=== PATIENT | male | born 1990 | race Caucasian/White ===

== ENCOUNTER 2017-12-15 17:02 | Inpatient (IN) | payer MEDICAID ==
--- NOTE | 2017-12-15 18:06 | ED Physician Chart ---
ED Chief Complaint/HPI - Patient Information Date Seen:: 12/15/17 Time Seen:: 18:01 Chief Complaint:: RLQ abdominal pain History of Present Illness:: 27 yo male had right inguinal and RLQ abdominal pain for 3 days. He then developed right flank pain for 1 day. He felt fever, nausea and urinary frequency. He denied diarrhea. Allergies:: Allergies Allergy/AdvReac Type Severity Reaction Status Date / Time No Known Allergies Allergy Verified 12/15/17 17:25 Vitals:: Vital Signs - 8 hr 12/15/17 17:25 Temp 98.2 F HR 67 RR 16 BP 145/83 O2 Sat % 98 ED Review of Systems - Review of Systems General/Constitutional: No fever Skin: No skin lesions Head: No headache Eyes: No loss of vision ENT: No earache Neck: No neck pain Cardio Vascular: No chest pain Pulmonary: No SOB GI: Nausea, No vomiting G/U: Frequency Neurological: No focal symptoms ED Past Medical History - Past Medical History Past Medical History: No significant medical hx Social History: Smoker, Alcohol, No Drug Use Surgical History: None Family Medical History - Family Member Mother Hx Family Cancer: No Hx Family Congestive Heart Failure: No Hx Family Hypertension: No Hx Family Stroke: No Hx Family Seizures: No Hx Family HIV: No Hx Family COPD: No Hx Family Tuberculosis: No ED Physical Exam - Physical Examination General/Constitutional: Awake Head: Atraumatic Eyes: PERRL, EOMI Skin: No skin lesions ENMT: Nasal exam nl Neck: No nuchal rigidity Respiratory: Clear to Auscultation, No Wheeze/Rhonchi/Rales Cardio Vascular: RRR, No murmur, gallop, rubs, NL S1 S2 Other GI comments:: RLQ tenderness Other comments:: Right CVA percussion tenderness Extremities: normal strength in all extremities Neuro/Psych: No focal deficits ED Labs/Radiology/EKG Results - Radiology Results Results: CT abdomen/pelvis: 5mm right distal ureteral stone with mild hydronephrosis, 8mm left kidney stone without hydronephrosis ED Assessment - Assessment General Assessment: Right ureteral stone Right hydronephrosis Left renal stone Assessment/Comments:: Toraldo 30mg IV NS 1L IV bolus Admit to med surg ED Septic Shock - . Is Septic Shock (SBP<90, OR Lactate>4 mmol\L) present?: No - <6hrs of presentation: Vital Signs: Vital Signs - 8 hr 12/15/17 17:25 Temp 98.2 F HR 67 RR 16 BP 145/83 O2 Sat % 98 ED Reassessment (Disposition) - Reassessment Reassessment Condition:: Improved - Patient Disposition Discharge/Transfer:: Acute Care w/in this hosp Admitting Medical Physician:: Ree Turner
[2017-12-15 19:07] LABS: % BASOPHILS 0.2 % (0.0-2.0); % EOSINOPHILS 1.2 % (0.0-5.0); % LYMPHOCYTES 12.9 % (20.0-50.0); % MONOCYTES 6.3 % (2.0-10.0); % NEUTROPHILS 79.4 % (40.0-80.0); EOSINOPHILE ABSOLUTE 0.1 Th/cmm (0.1-0.4); HEMATOCRIT 45.5 % (41.0-60); LYMPHOCYTE ABSOLUTE 1.4 Th/cmm (1.5-3.0); MEAN CELL VOLUME 80.1 fl (80-99); MEAN CORPUSCULAR HEMOGLOBIN 26.3 pg (26.0-30.0); MEAN CORPUSCULAR HGB CONC 32.9 pg (28.0-36.0); MEAN PLATELET VOLUME 8.1 fl; MONOCYTE ABSOLUTE 0.7 Th/cmm (0.3-1.0); NEUTROPHILE ABSOLUTE 8.6 Th/cmm (1.8-8.0); PLATELET COUNT 241 Th/cmm (150-400); RED BLOOD COUNT 5.68 Mil/cmm (4.30-5.70); RED CELL DISTRIBUTION WIDTH 12.6 % (11.5-20.0); WHITE BLOOD COUNT 10.8 Th/cmm (4.8-10.8)
[2017-12-15 19:08] LABS: URINE MICROSCOPIC INDICATED? YES; URINE SOURCE RANDOM
[2017-12-15 19:13] LABS: URINE BILIRUBIN NEGATIVE (NEGATIVE); URINE BLOOD MODERATE (NEGATIVE); URINE GLUCOSE (UA) NEGATIVE (NEGATIVE); URINE KETONE NEGATIVE (NEGATIVE); URINE LEUKOCYTE ESTERASE NEGATIVE (NEGATIVE); URINE NITRATE NEGATIVE (NEGATIVE); URINE PROTEIN NEGATIVE (NEGATIVE); URINE UROBILINOGEN 0.2 E.U./dL (0.2 - 1.0)
[2017-12-15 19:23] LABS: ALB/GLOB RATIO 1.8 (1.0-1.8); ALBUMIN 4.9 gm/dL (4.2-5.5); ALKALINE PHOSPHATASE 59 U/L (34-104); BILIRUBIN,TOTAL 0.4 mg/dL (0.3-1.0); BUN - UREA NITROGEN 13 mg/dL (7-25); CARBON DIOXIDE 26.7 mEq/L (21.0-31.0); CHLORIDE 102 mEq/L (98-107); CREATININE - SERUM 0.9 mg/dL (0.7-1.3); GFR AFRICAN-AMERICAN > 60.0 ml/min (>90); GFR NON AFRICAN-AMERICAN > 60.0 ml/min; GLUCOSE 128 mg/dL (70-105); POTASSIUM SERUM 3.7 mEq/L (3.5-5.1); SGOT 19 U/L (13-39); SGPT/ALT 26 U/L (7-52); SODIUM SERUM 136 mEq/L (136-145); TOTAL PROTEIN,SERUM 7.7 gm/dL (6.0-8.3)
[2017-12-15 19:39] LABS: URINE BACTERIA NONE SEEN /hpf (NONE SEEN); URINE CLARITY CLEAR (CLEAR); URINE COLOR YELLOW; URINE EPITHELIAL CELLS NONE SEEN /lpf (FEW); URINE WBC NONE SEEN /hpf (0-5)
[2017-12-15] MEDS ORDERED: Sodium Chloride 0.9% 1,000 ML IV ONE (19:48)
[2017-12-15] MEDS ORDERED: Sodium Chloride 0.9% 1,000 ML IV SCH (21:45)
[2017-12-15] MEDS: cefTRIAXone 1 GM in Sodium Chloride 0.9% 50 ML IV SCH (23:44)
[2017-12-16 06:06] LABS: % BASOPHILS 0.5 % (0.0-2.0); % EOSINOPHILS 4.5 % (0.0-5.0); % LYMPHOCYTES 26.4 % (20.0-50.0); % NEUTROPHILS 57.6 % (40.0-80.0); EOSINOPHILE ABSOLUTE 0.3 Th/cmm (0.1-0.4); HEMOGLOBIN 14.1 gm/dL (12-16); LYMPHOCYTE ABSOLUTE 1.6 Th/cmm (1.5-3.0); MEAN CELL VOLUME 81.8 fl (80-99); MEAN CORPUSCULAR HEMOGLOBIN 26.8 pg (26.0-30.0); MEAN CORPUSCULAR HGB CONC 32.7 pg (28.0-36.0); MEAN PLATELET VOLUME 8.2 fl; MONOCYTE ABSOLUTE 0.7 Th/cmm (0.3-1.0); NEUTROPHILE ABSOLUTE 3.6 Th/cmm (1.8-8.0); PLATELET COUNT 220 Th/cmm (150-400); RED BLOOD COUNT 5.26 Mil/cmm (4.30-5.70); RED CELL DISTRIBUTION WIDTH 12.8 % (11.5-20.0)
[2017-12-16 06:15] LABS: INR 1.01 (0.5-1.4); PROTHROMBIN TIME (TEST) 10.5 SECONDS (9.5-11.5)
[2017-12-16 06:30] LABS: WHITE BLOOD COUNT 6.2 Th/cmm (4.8-10.8)
[2017-12-16 06:56] LABS: ALB/GLOB RATIO 1.7 (1.0-1.8); ALBUMIN 4.2 gm/dL (4.2-5.5); ALKALINE PHOSPHATASE 51 U/L (34-104); ANION GAP 8.5 (7.0-16.0); BILIRUBIN,TOTAL 0.6 mg/dL (0.3-1.0); BUN - UREA NITROGEN 12 mg/dL (7-25); CALCIUM SERUM 8.8 mg/dL (8.6-10.3); CARBON DIOXIDE 28.6 mEq/L (21.0-31.0); CHLORIDE 106 mEq/L (98-107); CREATININE - SERUM 0.8 mg/dL (0.7-1.3); GFR AFRICAN-AMERICAN > 60.0 ml/min (>90); GFR NON AFRICAN-AMERICAN > 60.0 ml/min; GLUCOSE 110 mg/dL (70-105); MAGNESIUM 2.2 mg/dL (1.9-2.7); POTASSIUM SERUM 4.1 mEq/L (3.5-5.1); SGOT 15 U/L (13-39); SGPT/ALT 21 U/L (7-52); SODIUM SERUM 139 mEq/L (136-145); TOTAL PROTEIN,SERUM 6.7 gm/dL (6.0-8.3)
--- NOTE | 2017-12-16 09:47 | Diagnostic Imaging Report ---
Exam: KUB of the abdomen. HISTORY: Ureteral stone. Findings: Portable summation of the abdomen at 2204 hours reviewed. The study demonstrates nonspecific bowel gas pattern. Bony structures intact. No abnormal masses or calcifications are noted. IMPRESSION: Unremarkable examination of the abdomen.
--- NOTE | 2017-12-16 09:51 | Diagnostic Imaging Report ---
Exam: CT examination abdomen pelvis. HISTORY: Right lower quadrant pain Total DLP equals 333 CTDI equals 7.2. Findings: Multiple contiguous thin section of the abdomen pelvis obtained from lower thorax to pubic symphysis without the administration of contrast material no prior studies available comparison. The study demonstrates normal aeration of lung parenchyma the bases. The study demonstrates normal appearance of liver parenchyma and spleen. The pancreas is intact. The gallbladder is distended. No free fluid is noted There is evidence of for nonobstructing 8 mm left renal calculus Small, punctate, nonobstructing calculi noted in the right kidney Mild right-sided hydronephrosis noted with the prominence of the right the ureter with approximately 5 mm right distal ureteral calculus. The urinary bladder is intact. There is no evidence of diverticular process of diverticulitis. No free fluid is noted in the abdomen. The appendix is intact. IMPRESSION: 1. Nonobstructing left 8 mm renal calculus 2. Mild right-sided hydronephrosis. Right-sided distal ureter 5 mm partially obstructing calculus clinical correlation recommended. Punctate nonobstructing small calculi in the right renal pelvis
[2017-12-16] MEDS: cefTRIAXone 1 GM in Sodium Chloride 0.9% 50 ML IV SCH (20:45)
--- NOTE | 2017-12-16 23:50 | Consultation ---
DATE OF CONSULTATION: UROLOGY CONSULTATION HISTORY OF PRESENT ILLNESS: A 27-year-old seen for right flank and abdominal pain with nausea and some chills, no vomiting, dysuria, or hematuria of 3 days duration before admission. No past history of similar problems. No history of stone disease in himself or family. No history of urologic operation or hematuria and no urinary difficulties. HOME MEDICATIONS: None. ALLERGIES: None. PAST SURGICAL HISTORY: Negative. FAMILY HISTORY: Negative for stone disease. SOCIAL HISTORY: The patient is a cook. Denies tobacco, alcohol, or drug use. REVIEW OF SYSTEMS: No fever. Subjective chills present. No headache or seizures. Denied chest pain, coughing, or shortness of breath. Abdominal pain from the right flank to the right lower quadrant. No diarrhea. Some nausea, which has improved. No dysuria or hematuria. Denies skin or joint problems. PHYSICAL EXAMINATION: GENERAL: Awake, alert, oriented, in no distress. VITAL SIGNS: Temperature 98.8, heart rate 64, and blood pressure 112/67. He has not had a fever in the hospital so far. HEAD AND NECK: Normocephalic. Trachea central. Pupils equal and reactive. No jaundice. NECK: Thyroid and lymph nodes not palpable. Carotid bruit absent. CHEST: Symmetrical. LUNGS: Clear. No rales or rhonchi. Cardiovascular: Heart sounds normal in sinus rhythm, no murmur. ABDOMEN: Soft, much guarding, no rebound or rigidity. No tenderness in the flank on percussion, nor in the upper or lower right quadrants. No organomegaly or masses. EXTREMITIES: No edema or lymphadenopathy. NEUROLOGIC: Nonfocal. Moves all 4 limbs. LABORATORY DATA AND DIAGNOSTIC DATA: PT/INR is 1.0. White count is 6.2, down from 10.8 yesterday without any significant shift, hemoglobin 14.1, and platelets normal. BUN 12 and creatinine 0.8. Electrolytes are normal. Glucose 110. Liver functions are normal. Urine shows large amount of blood, 5-[address] scan of the abdomen and pelvis showed a 5 mm stone in the right distal ureter with a mild hydronephrosis and an 8 mm stone in the left kidney, incidental nonobstructing. There are also punctate stones in the right renal pelvis. IMPRESSION: Obstructing right ureteral stone and nonobstructing left kidney stone. Recommend aggressive diuresis, hydration, ambulation, and hopefully, the patient can pass the stone. If not, he will require a stent placement. We will continue to strain the urine and encourage oral hydration as well. At the same time, give him Lasix and follow his electrolytes. JOB# [id number]
[2017-12-17 06:00] LABS: % BASOPHILS 0.2 % (0.0-2.0); % EOSINOPHILS 5.5 % (0.0-5.0); % MONOCYTES 10.1 % (2.0-10.0); % NEUTROPHILS 54.2 % (40.0-80.0); EOSINOPHILE ABSOLUTE 0.3 Th/cmm (0.1-0.4); HEMATOCRIT 44.2 % (41.0-60); HEMOGLOBIN 14.5 gm/dL (12-16); LYMPHOCYTE ABSOLUTE 1.8 Th/cmm (1.5-3.0); MEAN CELL VOLUME 81.6 fl (80-99); MEAN CORPUSCULAR HEMOGLOBIN 26.8 pg (26.0-30.0); MEAN CORPUSCULAR HGB CONC 32.9 pg (28.0-36.0); MEAN PLATELET VOLUME 8.2 fl; MONOCYTE ABSOLUTE 0.6 Th/cmm (0.3-1.0); NEUTROPHILE ABSOLUTE 3.4 Th/cmm (1.8-8.0); PLATELET COUNT 213 Th/cmm (150-400); RED BLOOD COUNT 5.42 Mil/cmm (4.30-5.70); RED CELL DISTRIBUTION WIDTH 12.7 % (11.5-20.0); WHITE BLOOD COUNT 6.1 Th/cmm (4.8-10.8)
[2017-12-17 06:12] LABS: ALB/GLOB RATIO 1.7 (1.0-1.8); ALBUMIN 4.3 gm/dL (4.2-5.5); ALKALINE PHOSPHATASE 50 U/L (34-104); ANION GAP 8.7 (7.0-16.0); BILIRUBIN,TOTAL 0.7 mg/dL (0.3-1.0); BUN - UREA NITROGEN 12 mg/dL (7-25); CALCIUM SERUM 8.9 mg/dL (8.6-10.3); CARBON DIOXIDE 28.3 mEq/L (21.0-31.0); CHLORIDE 103 mEq/L (98-107); CREATININE - SERUM 0.8 mg/dL (0.7-1.3); GFR AFRICAN-AMERICAN > 60.0 ml/min (>90); GFR NON AFRICAN-AMERICAN > 60.0 ml/min; GLUCOSE 98 mg/dL (70-105); MAGNESIUM 2.1 mg/dL (1.9-2.7); SGOT 15 U/L (13-39); SGPT/ALT 21 U/L (7-52); SODIUM SERUM 136 mEq/L (136-145); TOTAL PROTEIN,SERUM 6.8 gm/dL (6.0-8.3)
[2017-12-17] MEDS ORDERED: Probiotic Screen MC PRN (09:30)
--- NOTE | 2017-12-17 20:41 | Progress Notes ---
DATE: 12/17/2017 UROLOGY PROGRESS NOTE HOSPITAL COURSE: The patient has less pain and has not required any pain medications this afternoon. No nausea, vomiting or fever. He is ambulating, but has not passed a stone. PHYSICAL EXAMINATION: VITAL SIGNS: Temperature 97.9, heart rate 77 and blood pressure 136/89. FLANK: Mildly tender on the right side on percussion. ABDOMEN: Soft, nondistended and nontender. EXTREMITIES: No edema. HEART: Sounds normal. LABORATORY DATA: White count 6.2, hemoglobin 14.5. Electrolytes normal. BUN 12 and creatinine 0.8. Urine culture, no growth. IMPRESSION: Right ureteral stone, most probably still in the ureter, but less symptoms and no infection. PLAN: Continue medical expulsive therapy and intervene if pain recurs or does not improve and if followup studies show persistent hydronephrosis. [facility]# [id number]
[2017-12-17] MEDS: cefTRIAXone 1 GM in Sodium Chloride 0.9% 50 ML IV SCH (20:54)
--- NOTE | 2017-12-18 02:45 | History & Physical Pre-OP ---
DATE OF SERVICE: 12/16/2017 CHIEF COMPLAINT: Right inguinal pain. HISTORY OF PRESENT ILLNESS: A 27-year-old gentleman with no medical problems, who presented to the ER with a 1-day history of severe right lower quadrant right inguinal pain with radiation to the right leg. The pain is described as sharp and constant. He denies any similar previous episodes. The pain was initially briefly associated with tactile fevers, mild nausea and he also reported urinary frequency. He denies any hematuria. Pertinent findings on the ER include UA with moderate blood, small bilirubin, 5-10 rbc's. On abdominal and pelvis CT, it showed; 1. Nonobstructing left 8 mm renal calculus. 2. Mild right-sided hydronephrosis. 3. Right-sided distal ureter partial obstructing calculus measuring 5 mm. The patient has been admitted to the medical/surgical floor for further management and care. PAST MEDICAL HISTORY: None. PAST SURGICAL HISTORY: None. FAMILY HISTORY: Noncontributory. SOCIAL HISTORY: Denies any tobacco, ETOH, or illicit drug usage. ALLERGIES: NKDA. OUTPATIENT MEDICATIONS: None. REVIEW OF SYSTEMS: CONSTITUTIONAL: One episode of tactile fever. No recent weight loss. CARDIAC: No chest pain, palpitations. PULMONARY: No cough or sputum production. GASTROINTESTINAL: No bowel habit changes except for mild nausea, but no vomiting, no diarrhea. GENITOURINARY: Please refer to the HPI. NEUROLOGIC: No changes in vision, no headaches. PHYSICAL EXAMINATION: VITAL SIGNS: Temperature 98.9, pulse 60, blood pressure 107/65, respirations 18, and satting 98-100% on room air. GENERAL: Well-developed, well-nourished, not in acute distress, speaking in full sentences. HEAD AND NECK: Normocephalic, atraumatic. Pupils are reactive to light. Extraocular movements are intact. Oropharynx is moist and clear. CARDIAC: Regular rate and rhythm without any murmurs. LUNGS: Clear to auscultation bilaterally. ABDOMEN: Soft, supple. There is tenderness to palpation on the right inguinal area. Currently, there is no CVA angle tenderness. LOWER EXTREMITIES: No pedal edema. LABORATORY DATA: CBC was within normal limits. INR is 1.01. Chemistry shows glucose of 110, otherwise within normal limits. LFTs are within normal limits. UA shows moderate blood and 5-10 rbc's. DIAGNOSTICS: Please refer to the HPI, and there was a KUB done yesterday showing unremarkable exam. ASSESSMENT: 1. Right renal colic. 2. Right distal ureteral stone measuring 5 mm with mild hydronephrosis. 3. Left 8 mm kidney stone. PLAN: The patient has been admitted to the medical/surgical floor for further management and care. The patient has been placed on IV fluids at 100 mL per hour and has been placed empirically on Rocephin. He is also receiving Toradol p.r.n. for pain. I have ordered the urine to be strained and Urology consult also has been asked for. JOB# [id number]
[2017-12-18 06:30] LABS: ALB/GLOB RATIO 1.7 (1.0-1.8); ALBUMIN 4.4 gm/dL (4.2-5.5); ALKALINE PHOSPHATASE 51 U/L (34-104); ANION GAP 7.9 (7.0-16.0); BILIRUBIN,TOTAL 0.7 mg/dL (0.3-1.0); BUN - UREA NITROGEN 11 mg/dL (7-25); CALCIUM SERUM 9.1 mg/dL (8.6-10.3); CARBON DIOXIDE 29.1 mEq/L (21.0-31.0); CHLORIDE 104 mEq/L (98-107); CREATININE - SERUM 0.8 mg/dL (0.7-1.3); GFR AFRICAN-AMERICAN > 60.0 ml/min (>90); GFR NON AFRICAN-AMERICAN > 60.0 ml/min; GLUCOSE 92 mg/dL (70-105); SGOT 15 U/L (13-39); SGPT/ALT 21 U/L (7-52); SODIUM SERUM 137 mEq/L (136-145)
[2017-12-18 06:33] LABS: EOSINOPHILE ABSOLUTE 0.5 Th/cmm (0.1-0.4); HEMATOCRIT 44.5 % (41.0-60); HEMOGLOBIN 14.8 gm/dL (12-16); LYMPHOCYTE ABSOLUTE 0.1 Th/cmm (1.5-3.0); MEAN CORPUSCULAR HEMOGLOBIN 27.3 pg (26.0-30.0); MEAN CORPUSCULAR HGB CONC 33.3 pg (28.0-36.0); MEAN PLATELET VOLUME 8.5 fl; MONOCYTE ABSOLUTE 1.8 Th/cmm (0.3-1.0); NEUTROPHILE ABSOLUTE 4.2 Th/cmm (1.8-8.0); PLATELET COUNT 240 Th/cmm (150-400); RED BLOOD COUNT 5.42 Mil/cmm (4.30-5.70); RED CELL DISTRIBUTION WIDTH 12.5 % (11.5-20.0); WHITE BLOOD COUNT 6.6 Th/cmm (4.8-10.8)
[2017-12-18 07:57] LABS: EOSINOPHIL 5 % (0-5); LYMPHOCYTE 35 % (20-50); MONOCYTE 11 % (2-10); NEUTROPHILS 49 % (40-80); TOTAL CELLS COUNTED 100
[2017-12-18] MEDS: Lactobacillus Rhamnosus GG 15 Billion CFU CAP.SPRINK PO SCH (09:15)
--- NOTE | 2017-12-18 10:18 | Diagnostic Imaging Report ---
CT scan abdomen and pelvis without intravenous contrast HISTORY: Urinary tract calculus, pain Total DLP equals 376 CTDI equals 7.8 Axial sections were obtained from the xiphoid process down to the pubic symphysis. The exam is compared with a prior examination of December 15, 2017. Compared with the prior exam, an approximate 5 mm calculus remains situated within the distal portion of the right ureter. No significant change in position. There remains mild dilatation of the right ureter and mild dilatation/hydronephrosis involving the right renal collecting system. Again noted is an approximate 8 mm calculus within the cortical medullary junction region of the left kidney without hydronephrosis. The liver exhibits a homogeneous parenchyma. No focal lesions. The spleen appears normal. No abnormality seen in the region of the pancreas. There is a small fat-containing umbilical hernia. No abnormal soft tissue masses or fluid collections seen within the pelvis. Colonic diverticula are seen. IMPRESSION: 1. No change since the prior exam of December 15, 2017 in the position of an approximate 5 mm calculus situated within the distal portion of the right ureter with mild hydronephrosis and mild dilatation of the right ureter. 2. No change in an approximate 8 mm nonobstructing left renal calculus
[2017-12-18] MEDS: cefTRIAXone 1 GM in Sodium Chloride 0.9% 50 ML IV SCH (22:05)
--- NOTE | 2017-12-19 02:12 | Progress Notes ---
DATE: UROLOGY PROGRESS NOTE HOSPITAL COURSE: The patient has not had pain, but has not passed the stone either and is requesting stent placement, when given the choices of attempting further medical therapy at home versus stent placement. Since we did not have an ureteroscope in the hospital that would have to be done at a later date. PHYSICAL EXAMINATION: VITAL SIGNS: Temperature 97.5, heart rate 70, blood pressure 137/92. ABDOMEN: Soft. Right flank mildly tender to percussion. No masses. EXTREMITIES: No edema. HEART AND LUNG: Sounds normal. LABS: White count 6.6, hemoglobin 14.8. Sodium 137, potassium is 7, BUN 11, creatinine 0.8. Urine culture came back negative. IMPRESSION: Right ureteral stone, not passing spontaneously. Therefore, we will attempt stent insertion tomorrow. The patient understands the procedure, risks, benefits, and options, specifically risk of ureteral perforation that can sometimes require nephrostomy. He also has a stone in the opposite kidney, which is 8 mm and will require attention and treatment electively at a future date. JOB# [id number]
[2017-12-19 05:39] LABS: EOSINOPHILE ABSOLUTE 0.2 Th/cmm (0.1-0.4); HEMATOCRIT 45.3 % (41.0-60); HEMOGLOBIN 14.8 gm/dL (12-16); LYMPHOCYTE ABSOLUTE 0.3 Th/cmm (1.5-3.0); MEAN CORPUSCULAR HEMOGLOBIN 26.9 pg (26.0-30.0); MEAN CORPUSCULAR HGB CONC 32.8 pg (28.0-36.0); MEAN PLATELET VOLUME 8.1 fl; MONOCYTE ABSOLUTE 4.6 Th/cmm (0.3-1.0); NEUTROPHILE ABSOLUTE 1.5 Th/cmm (1.8-8.0); PLATELET COUNT 228 Th/cmm (150-400); RED BLOOD COUNT 5.52 Mil/cmm (4.30-5.70); RED CELL DISTRIBUTION WIDTH 12.3 % (11.5-20.0); WHITE BLOOD COUNT 6.6 Th/cmm (4.8-10.8)
[2017-12-19 05:57] LABS: ALB/GLOB RATIO 1.8 (1.0-1.8); ALBUMIN 4.4 gm/dL (4.2-5.5); ALKALINE PHOSPHATASE 52 U/L (34-104); ANION GAP 7.7 (7.0-16.0); BILIRUBIN,TOTAL 0.9 mg/dL (0.3-1.0); BUN - UREA NITROGEN 11 mg/dL (7-25); CALCIUM SERUM 9.2 mg/dL (8.6-10.3); CARBON DIOXIDE 30.4 mEq/L (21.0-31.0); CHLORIDE 102 mEq/L (98-107); CREATININE - SERUM 0.8 mg/dL (0.7-1.3); GFR AFRICAN-AMERICAN > 60.0 ml/min (>90); GFR NON AFRICAN-AMERICAN > 60.0 ml/min; GLUCOSE 97 mg/dL (70-105); MAGNESIUM 2.1 mg/dL (1.9-2.7); POTASSIUM SERUM 4.1 mEq/L (3.5-5.1); SGOT 14 U/L (13-39); SGPT/ALT 20 U/L (7-52); SODIUM SERUM 136 mEq/L (136-145); TOTAL PROTEIN,SERUM 6.9 gm/dL (6.0-8.3)
[2017-12-19 06:24] LABS: EOSINOPHIL 4 % (0-5); LYMPHOCYTE 40 % (20-50); MONOCYTE 10 % (2-10); NEUTROPHILS 46 % (40-80); TOTAL CELLS COUNTED 100
[2017-12-19] MEDS ORDERED: IOHEXOL 300mgI/mL 50 ML VIAL ONE (07:51)
[2017-12-19] MEDS: Lactobacillus Rhamnosus GG 15 Billion CFU CAP.SPRINK PO SCH (08:37)
[2017-12-19] MEDS ORDERED: fentaNYL Citrate 100 mcg/2mL Vial ONE (11:54)
[2017-12-19] MEDS ORDERED: Propofol **SURGERY USE ONLY** 20 ML IV ONE (12:19)
[2017-12-19] MEDS ORDERED: Lidocaine 2% Vial 20 mL Vial ONE (12:19)
[2017-12-19] MEDS ORDERED: Neostigmine 10mg/10mL Vial ONE (12:20)
--- NOTE | 2017-12-19 13:11 | Diagnostic Imaging Report ---
Right ureteral stent placement (intraoperative fluoroscopic images and services) HISTORY: Ureteral stent placement Intraoperative fluoroscopic images and services were provided for facilitation of surgical intervention. 31 seconds fluoroscopy time was utilized.
--- NOTE | 2017-12-19 21:29 | Operative Report ---
DATE OF SURGERY: 12/19/2017 PREOPERATIVE DIAGNOSIS: Right ureteral stone that has not passed, but does not have much pain either. POSTOPERATIVE DIAGNOSIS: Right ureteral stone that has not passed, but does not have much pain either. SURGEON: Aniket Leach M.D. NAME OF PROCEDURE: Cystoscopy and insertion of stent in right kidney with a retrograde pyelogram, injection of contrast, and fluoroscopy. ANESTHESIA: General. INDICATIONS: This is a young man who came in with a stone that did not pass. He was given the option to pass the stone at home or consider a stent placement. He has elected to have the stent, understanding the limitations, risks, and options related to the stent. FINDINGS: Cystoscopy was completed, but was difficult as the patient developed erection as soon as he was induced and required at least 20-30 minutes for this to wear off, by change of anesthetic agents. The bladder was unremarkable. The urethra was open and the retrograde was not conclusive as there were some air bubbles injected in spite of many efforts to prevent that. A 6 x 22 double-J stent was inserted without difficulty or resistance in satisfactory location. There was no blood loss or complication. DESCRIPTION OF PROCEDURE: The patient was brought to the operating room, prepped and draped in the dorsal lithotomy position after general anesthesia was induced. The urethra was dilated. There was no stricture, but the procedure had to be postponed or delayed due to the severe erections that the patient had. After changing several different anesthetic agents and stopping the nitrous oxide and then trying to reverse all the agents, the penis became partially flaccid to allow cystoscopy and examine the bladder, cannulate the right orifice, inject contrast followed by the Glidewire and then, the double-J stent, without any difficulty or loss of blood. Bladder was drained and the procedure completed without any blood loss or complication. JOB# [id number]
--- NOTE | 2017-12-20 17:25 | Discharge Summary ---
DATE OF DISCHARGE: 12/19/2017 ADMITTING DIAGNOSES: 1. Right renal colic. 2. Right distal ureteral blocking stone measuring 5 mm with mild hydronephrosis. 3. Left 8 mm kidney stone. DISCHARGE DIAGNOSES: 1. Right renal colic, resolved. 2. Right distal ureteral stone measuring 5 mm with mild hydronephrosis status post stent placement. 3. Left 8 mm nonobstructive kidney stone. CONSULTANTS: Dr. Leach, Urology. MAJOR PROCEDURES: 1. On 12/15/2017, the patient underwent a CT of the abdomen and pelvis showing; nonobstructive left 8 mm renal calculus, mild right-sided hydronephrosis; a right-sided distal ureter 5 mm partially obstructing calculus. 2. KUB on 12/15/2017 shows unremarkable examination of the abdomen. 3. Repeat abdominal and pelvis CT on 12/18/2016 showing no changes since the prior exam on 12/15-there was no change in the position of the approximate 5 mm calculus situated within the distal portion of the right ureter with mild hydronephrosis and mild dilatation of the right ureter. No change in an approximate 8 mm obstructing left renal calculus. 3. On 12/19/2017, here underwent ureteral stent placement. The patient underwent cystoscopy and insertion stent the right kidney with a retrograde pyelogram, injection of contrast and fluoroscopy without any complications. DISCHARGE MEDICATIONS: Please refer to the MAR. BRIEF HOSPITAL COURSE: The patient is a 27-year-old gentleman with no medical problems who presented to the ER with a 1-day history of severe right lower quadrant pain/inguinal pain with radiation to the right leg. Initially, the patient thought it was back ache, but the pain kept increasingly getting worse and was described as sharp and constant. He denied having any similar episodes. He did have a brief episode of tactile fevers, mild nausea some urinary frequency, but denies any hematuria or any dysuria per se. He was evaluated in the ER and there underwent the above-mentioned CT scan showing a partially obstructing stone. He was admitted to the medical/surgical floor, placed on aggressive IV hydration, Lasix and Flomax to see if he would pass the stone. The urine was strained, but no stone was noted. The patient, however, did improve with no pain reported and no nausea, vomiting. He was placed on pain control, emperic IV abxs and Urology consult was asked for. A repeat CT scan was done as noted above with no improvement of his findings and therefore, a stent was planned by Urology. The patient was agreeable to the procedure and underwent the above-mentioned operation without any complications. DISPOSITION: The patient was instructed by Dr. Leach to follow up with [facility] for urology followup and to be vigilant of any stone passing when urinating. He was instructed to follow up with his primary care doctor within 2-3 days. JOB# [id number] BETTY
== END 2017-12-19 15:43 | disposition home or self-care (01) | DRG 465 ==
LOC: ER 17:02 → MSI 20:50
PROVIDERS: ADMIT Internal Medicine; ATTEND Internal Medicine
PROC: 0T768DZ Dilation of Right Ureter with Intraluminal Device, Via Natural or Artificial Opening Endoscopic (ICD-10-PCS; principal; 2017-12-19)
DX: N13.2 Hydronephrosis with renal and ureteral calculous obstruction (principal)
CPT/HCPCS: 36415-UA; 74000-TC; 76000-TC; 80053-TC; 81001-TC; 82948-90; 83735-TC; 85007-TC; 85025-TC; 85027-TC; 85610-TC; 85730-TC; 87086-90; 96374; J0696; J1885; J2405; J2704; J2710; J3010; J3480; J7030; Q9967; X6258; X6494; Z7610

== ENCOUNTER 2018-12-27 20:26 | Emergency (ER) | payer MEDICAID ==
--- NOTE | 2018-12-27 21:03 | ED Physician Chart ---
ED Chief Complaint/HPI - Patient Information Date Seen:: 12/27/18 Time Seen:: 20:50 Chief Complaint:: right upper quadrant abdominal pain History of Present Illness:: Patient developed right upper quadrant abdominal pain at 1700 today. He is nauseated but has had no vomiting or diarrhea. Patient was admitted here on December 15 for right lower quadrant and right groin pain. CT of the abdomen and pelvis showed a nonobstructing 8 mm left renal calculus and a 5 mm partially obstructing distal right ureter stone. On December 19 cystoscopy and insertion of stent in the right kidney with a retrograde pyelogram, injection of contrast and fluoroscopy were performed. At time of discharge patient was told to follow-up with the urologist Dr. Leach which he did not do. Allergies:: Allergies Allergy/AdvReac Type Severity Reaction Status Date / Time No Known Allergies Allergy Verified 12/27/18 20:28 Vitals:: Vital Signs - 8 hr 12/27/18 20:30 Temp 98.5 F HR 71 RR 18 BP 150/72 O2 Sat % 99 Historian:: Patient Review:: Nurse's Note Reviewed ED Review of Systems - Review of Systems General/Constitutional: No fever, No chills, No weight loss, No weakness, No diaphoresis, No edema, No loss of appetite Skin: No skin lesions, No rash, No bruising Head: No headache, No light-headedness Eyes: No loss of vision, No pain, No diplopia ENT: No earache, No nasal drainage, No sore throat, No tinnitus Neck: No neck pain, No swelling, No thyromegaly, No stiffness, No mass noted Cardio Vascular: No chest pain, No palpitations, No PND, No orthopnea, No edema Pulmonary: No SOB, No cough, No sputum, No wheezing GI: Nausea, No vomiting, No diarrhea, Pain, No melena, No hematochezia, No constipation, No hematemesis G/U: No dysuria, No frequency, No hematuria Musculoskeletal: No bone or joint pain, No back pain, No muscle pain Endocrine: No polyuria, No polydipsia Psychiatric: No prior psych history, No depression, No anxiety, No suicidal ideation Hematopoietic: No bruising, No lymphadenopathy Allergic/Immuno: No urticaria, No angioedema Neurological: No syncope, No focal symptoms, No weakness, No paresthesia, No headache, No seizure, No dizziness, No confusion, No vertigo Family Medical History - Family Member Mother History Unknown: Yes Ethnicity: Hx Family Cancer: No Hx Family Congestive Heart Failure: No Hx Family Hypertension: No Hx Family Stroke: No Hx Family Seizures: No Hx Family HIV: No Hx Family COPD: No Hx Family Tuberculosis: No ED Labs/Radiology/EKG Results - Lab Results Results: Abnormal Lab Results 12/27/18 20:35 Urine Source CLEAN C Urine Color YELLOW Urine Clarity HAZY Urine pH 6.0 Ur Specific [place] >= 1.030 Urine Protein 100 H Urine Glucose (UA) NEGATIVE Urine Ketones NEGATIVE Urine Blood LARGE H Urine Nitrate NEGATIVE Urine Bilirubin NEGATIVE Urine Urobilinogen 0.2 Ur Leukocyte Esterase NEGATIVE Urine RBC 50-100 H Urine WBC 0-2 Ur Epithelial Cells FEW Urine Bacteria FEW It is amazing to me using what they do with like with a lipid been able to light. Light the elevated the the the to the whole human genome about 15-20 years ago. No something if you want a Vicodin determine the whole G no acute percent 1 personnel carcinoma $100.20 years ago. It used to cost like 1 million done to 100,000. EKG home genome, I guess it would do it could be done for about $100 to have his enzymes didn't replicates the DNA they'll have ureteral calculus ED Assessment - Assessment General Assessment: Patient has hematuria, but he does not have a urinary tract infection. Spoke to Dr. Leach at about 2210 and he asked that the patient call his office for an appointment as soon as possible. He wanted me to stress to the patient that if he does not follow-up he can lose his kidney. This information was conveyed to the patient through a nursing director. Patient will be given Dr. Leach' s telephone number when discharged. With the Toradol 30 mg intramuscularly patient's pain greatly improved to totally subsided. ED Septic Shock - . Is Septic Shock (SBP<90, OR Lactate>4 mmol\L) present?: No - <6hrs of presentation: Vital Signs: Vital Signs - 8 hr 12/27/18 20:30 Temp 98.5 F HR 71 RR 18 BP 150/72 O2 Sat % 99 ED Reassessment (Disposition) - Reassessment Reassessment Condition:: Improved - Diagnosis Diagnosis:: 5 mm distal right ureteral calculus - Aftercare/Follow up Instructions Aftercare/Follow-Up Instructions:: Refer to Discharge Instructions - Patient Disposition Discharge/Transfer:: Home Condition at Disposition:: Stable, Improved
[2018-12-27 21:12] LABS: URINE SOURCE CLEAN C
[2018-12-27 21:14] LABS: URINE BILIRUBIN NEGATIVE (NEGATIVE); URINE BLOOD LARGE (NEGATIVE); URINE GLUCOSE (UA) NEGATIVE (NEGATIVE); URINE KETONE NEGATIVE (NEGATIVE); URINE LEUKOCYTE ESTERASE NEGATIVE (NEGATIVE); URINE MICROSCOPIC INDICATED? YES; URINE NITRATE NEGATIVE (NEGATIVE); URINE PROTEIN 100 mg/dL (NEGATIVE); URINE UROBILINOGEN 0.2 E.U./dL (0.2 - 1.0)
[2018-12-27 21:24] LABS: URINE CLARITY HAZY (CLEAR); URINE COLOR YELLOW
[2018-12-27 21:28] LABS: URINE EPITHELIAL CELLS FEW /lpf (FEW); URINE RBC 50-100 /hpf (0-5); URINE WBC 0-2 /hpf (0-5)
[2018-12-27 21:29] LABS: URINE BACTERIA FEW /hpf (NONE SEEN)
== END 2018-12-27 22:35 | disposition home or self-care (01) ==
LOC: ER 20:26
DX: N20.1 Calculus of ureter (principal)
CPT/HCPCS: 99283; 96372; 81001; J1885; Z7502

== ENCOUNTER 2019-06-05 14:20 | Emergency (ER) | payer SELFPAY ==
[2019-06-05 14:43] LABS: URINE SOURCE CLEAN C
[2019-06-05 14:45] LABS: URINE BILIRUBIN NEGATIVE (NEGATIVE); URINE BLOOD LARGE (NEGATIVE); URINE GLUCOSE (UA) NEGATIVE (NEGATIVE); URINE KETONE NEGATIVE (NEGATIVE); URINE LEUKOCYTE ESTERASE MODERATE (NEGATIVE); URINE MICROSCOPIC INDICATED? YES; URINE NITRATE NEGATIVE (NEGATIVE); URINE PROTEIN 100 mg/dL (NEGATIVE); URINE UROBILINOGEN 0.2 E.U./dL (0.2 - 1.0)
[2019-06-05 14:47] LABS: URINE CLARITY TURBID (CLEAR); URINE COLOR YELLOW
[2019-06-05 14:55] LABS: URINE RBC 50-100 /hpf (0-5)
[2019-06-05 14:57] LABS: URINE WBC 25-50 /hpf (0-5)
[2019-06-05 14:58] LABS: URINE BACTERIA FEW /hpf (NONE SEEN); URINE EPITHELIAL CELLS NONE SEEN /lpf (FEW)
[2019-06-05] MEDS: cefTRIAXone 1 GM in Sodium Chloride 0.9% 50 ML IV ONE (15:19)
[2019-06-05] MEDS: Sodium Chloride 0.9% 1,000 ML IV ONE (15:20)
[2019-06-05 15:22] LABS: % BASOPHILS 0.2 % (0.0-2.0); % EOSINOPHILS 1.2 % (0.0-5.0); % LYMPHOCYTES 23.4 % (20.0-50.0); % MONOCYTES 6.8 % (2.0-10.0); % NEUTROPHILS 68.4 % (40.0-80.0); EOSINOPHILE ABSOLUTE 0.1 Th/cmm (0.1-0.4); HEMATOCRIT 46.2 % (41.0-60); HEMOGLOBIN 14.9 gm/dL (12-16); LYMPHOCYTE ABSOLUTE 1.5 Th/cmm (1.5-3.0); MEAN CELL VOLUME 82.6 fl (80-99); MEAN CORPUSCULAR HEMOGLOBIN 26.7 pg (26.0-30.0); MEAN CORPUSCULAR HGB CONC 32.3 pg (28.0-36.0); MONOCYTE ABSOLUTE 0.4 Th/cmm (0.3-1.0); NEUTROPHILE ABSOLUTE 4.2 Th/cmm (1.8-8.0); PLATELET COUNT 255 Th/cmm (150-400); RED BLOOD COUNT 5.58 Mil/cmm (4.30-5.70); RED CELL DISTRIBUTION WIDTH 12.5 % (11.5-20.0); WHITE BLOOD COUNT 6.2 Th/cmm (4.8-10.8)
--- NOTE | 2019-06-05 15:23 | ED Physician Chart ---
ED Chief Complaint/HPI - Patient Information Date Seen:: 06/05/19 Time Seen:: 14:30 Chief Complaint:: Flank Pain History of Present Illness:: onset x 3 days of flank pain, hematuria, fever, and dysuria; Hx of Nephrolithiasis with retained stents; pt denies trauma, H/As, S/T, neck pain, C/ P, SOB, cough, Abd. Pain, A/N/V/D/C, chills, or pelvic/hip pain; pt's last tetanus shot: < 5 years; UTD; pt is eating and urinating well; pt last urinated one hour [employer] Allergies:: Allergies Allergy/AdvReac Type Severity Reaction Status Date / Time No Known Allergies Allergy Verified 12/27/18 20:28 Vitals:: Vital Signs - 8 hr 06/05/19 14:29 Temp 99.3 F HR 85 RR 16 BP 137/82 O2 Sat % 99 Historian:: Patient Review:: Nurse's Note Reviewed, Old Chart Reviewed ED Review of Systems - Review of Systems General/Constitutional: No fever, No chills, No weight loss, No weakness, No diaphoresis, No edema, No loss of appetite Skin: No skin lesions, No rash, No bruising Head: No headache, No light-headedness Eyes: No loss of vision, No pain, No diplopia ENT: No earache, No nasal drainage, No sore throat, No tinnitus Neck: No neck pain, No swelling, No thyromegaly, No stiffness, No mass noted Cardio Vascular: No chest pain, No palpitations, No PND, No orthopnea, No edema Pulmonary: No SOB, No cough, No sputum, No wheezing GI: No nausea, No vomiting, No diarrhea, No pain, No melena, No hematochezia, No constipation, No hematemesis G/U: Dysuria, No frequency, Hematuria, No nacturia Musculoskeletal: No bone or joint pain, No back pain, No muscle pain Endocrine: No polyuria, No polydipsia Psychiatric: No prior psych history, No depression, No anxiety, No suicidal ideation, No homicidal ideation, No auditory hallucination, No visual hallucination Hematopoietic: No bruising, No lymphadenopathy Allergic/Immuno: No urticaria, No angioedema Neurological: No syncope, No focal symptoms, No weakness, No paresthesia, No headache, No seizure, No dizziness, No confusion, No vertigo ED Past Medical History - Past Medical History Obtainable: Yes Past Medical History: Other (Renal Calculi) Family History: None Social History: Non Smoker, No Alcohol, No Drug Use, Single Surgical History: other (Ureteral Stents) Psychiatricy History: None Medication: Reviewed Family Medical History - Family Member Mother History Unknown: Yes Ethnicity: Hx Family Cancer: No Hx Family Congestive Heart Failure: No Hx Family Hypertension: No Hx Family Stroke: No Hx Family Seizures: No Hx Family HIV: No Hx Family COPD: No Hx Family Tuberculosis: No ED Physical Exam - Physical Examination General/Constitutional: Awake, Well-developed, well-nourished, Alert, No distress, GCS 15, Non-toxic appearing, Ambulatory Head: Atraumatic Eyes: Lids, conjuctiva normal, PERRL, EOMI Skin: Nl inspection, No rash, No skin lesions, No ecchymosis, Well hydrated, No lymphadenopathy ENMT: External ears, nose nl, TM canals nl, Nasal exam nl, Lips, teeth, gums nl , Oropharynx nl, Tonsils nl Neck: Nontender, Full ROM w/o pain, No JVD, No nuchal rigidity, No bruit, No mass, No stridor Other Neck comments:: supple; no meningeal signs; no cervical tenderness; no bruits Respiratory: Nl effort/Exclusion, Clear to Auscultation, No Wheeze/Rhonchi/Rales Cardio Vascular: RRR, No murmur, gallop, rubs, NL S1 S2, Carotid/Femoral/Distal pulses equal bilaterally GI: No tenderness/rebounding/guarding, No organomegaly, No hernia, Normal BS's, Nondistended, No mass/bruits, No McBurney tenderness, Rectum exam nl Other GI comments:: no pulsatile masses : No CVA tenderness, NL external genitalia, No discharge Extremities: No tenderness or effusion, Full ROM, normal strength in all extremities, No edema, Normal digits & nails Neuro/Psych: Alert/oriented, DTR's symmetric, Normal sensory exam, Normal motor strength, Judgement/insight normal, Mood normal, Normal gait, No focal deficits Other Neuro/Psych comments:: no focal signs Misc: Normal back, No paraspinal tenderness ED Labs/Radiology/EKG Results - Lab Results Results: Laboratory Tests 06/05/19 14:20 Urine Source CLEAN C Urine Color YELLOW Urine Clarity TURBID Urine pH 6.0 Ur Specific [place] 1.025 Urine Protein 100 H Urine Glucose (UA) NEGATIVE Urine Ketones NEGATIVE Urine Blood LARGE H Urine Nitrate NEGATIVE Urine Bilirubin NEGATIVE Urine Urobilinogen 0.2 Ur Leukocyte Esterase MODERATE H Urine RBC 50-100 H Urine WBC 25-50 H Ur Epithelial Cells NONE SEEN Urine Bacteria FEW Comments:: Reviewed - Radiology Results Comments:: X-Rays: + Right Nephroureteral stent; Right Hydronephrosis; 6mm Left Renal Stone ED Septic Shock - . Is Septic Shock (SBP<90, OR Lactate>4 mmol\L) present?: No - <6hrs of presentation: Vital Signs: Vital Signs - 8 hr 06/05/19 14:29 Temp 99.3 F HR 85 RR 16 BP 137/82 O2 Sat % 99 ED Reassessment (Disposition) - Reassessment Reassessment:: pt chose to sign out AMA; pt tolerated po fluids well in ER; pt is asymptomatic upon discharge/AMA Reassessment Condition:: Improved - Diagnosis Diagnosis:: Flank Pain; Hematuria; UTI; Nephrolithiasis; Fever; Sepsis; Retained Right Nephroureteral Stent; Right Hydronephrosis; Left Renal Calculus - Aftercare/Follow up Instructions Aftercare/Follow-Up Instructions:: Counseled pt regarding lab results/diagnosis & need follow up, Refer to Discharge Instructions, Counseled pt & family regarding lab results/diagnosis & need follow up Medication Prescribed:: Rx: Keflex 500mg po qid x 10 days; Urine Strainer: Strain all Urine; tylenol 500mg po qid prn pain/fever; encourage fluids especially citric acid juices - Patient Disposition Discharge/Transfer:: Against Medical Advice Condition at Disposition:: Stable, Improved (X-Rays Instructions; RTER prn if existing s/s reoccur and/or get worse and/or any other new s/s occur; ACIs given for all above Dx; Refer to Urologist/Animal Science Professor KEATON; F/U with PMD Today or prn; RTER prn if concerned)
[2019-06-05 15:41] LABS: AMYLASE SERUM 45 U/L (29-103); ANION GAP 14.4 (7.0-16.0); BUN - UREA NITROGEN 12 mg/dL (7-25); CALCIUM SERUM 9.9 mg/dL (8.6-10.3); CARBON DIOXIDE 26.7 mEq/L (21.0-31.0); CHLORIDE 103 mEq/L (98-107); CREATININE - SERUM 0.9 mg/dL (0.7-1.3); GFR AFRICAN-AMERICAN > 60.0 ml/min (>90); GFR NON AFRICAN-AMERICAN > 60.0 ml/min; GLUCOSE 104 mg/dL (70-105); LIPASE 9 U/L (11-82); POTASSIUM SERUM 4.1 mEq/L (3.5-5.1); SODIUM SERUM 140 mEq/L (136-145)
--- NOTE | 2019-06-06 09:29 | Diagnostic Imaging Report ---
CT abdomen and pelvis without intravenous contrast Indication: Stent dysfunction, flank pain Comparison: CT abdomen and pelvis on 12/18/2017 and fluoroscopic C-arm study on 12/19/2017, Technique: Axial images were obtained from the lung bases to the bilateral proximal femurs without IV contrast. Coronal reconstructions were made. total DLP: 406, CTDI8.6 FINDINGS: Hypoventilatory changes of the lung bases are noted. Assessment of the solid organs is limited due to lack of IV contrast. No evidence of focal hepatic, splenic, or pancreatic lesions. No focal adrenal lesions. There are either adjacent or single left mid renal stone measuring up to 7 mm. There is moderate to severe right hydronephrosis. A right double-J pigtail catheter is noted with proximal tip within the right renal collecting system just proximal to the UVJ region. The distal tip is seen within the urinary bladder. There is also additional curvilinear density seen within this region in the urinary bladder, etiology uncertain. Underdistended urinary bladder is noted. No free fluid or free air. No evidence of bowel obstruction. No evidence of acute appendicitis. The osseous structures demonstrate no abnormalities. IMPRESSION: Right-sided nephroureteral stent noted. The proximal pigtail portion of the double J stent is located within the right renal collecting system just proximal to the right UVJ. The distal pigtail tip is within the urinary bladder. Note however is made of additional radiopaque density within the urinary bladder within the pigtail region. This may be associated with patient's stent placed procedure. Other etiologies such as a retained foreign body or small stones cannot be excluded correlation needs to made with clinical history and surgical history. Follow-up urological consultation is recommended. 1 or 2 adjacent left mid renal stones measuring up to 7 mm. No hydronephrosis on the left side.
== END 2019-06-05 16:40 | disposition left against medical advice (07) ==
LOC: ER 14:20
DX: A41.9 Sepsis, unspecified organism (principal); N20.0 Calculus of kidney; N39.0 Urinary tract infection, site not specified; R31.9 Hematuria, unspecified; Z96.0 Presence of urogenital implants
CPT/HCPCS: 99284; 96365; 96375; 74176; 84484; 36415; 85025; 87086; 81001; 82150; 83690; 80048; J1885; J0696; J7030